=== PATIENT | male | born 1935 | race Caucasian/White ===

== ENCOUNTER 2017-01-13 20:50 | Inpatient (IN) | payer MEDICARE, OTHER ==
--- NOTE | ~2017-01-13 | CR72 ---
[facility] A Service of [facility] RADIOLOGY TEXT RESULTS PATIENT: LEONEL MCKEON LOCATION: [place] [id number] : 33 UNIT #: [id number] AGE: [address]: Marline Daley MD SEX: M ORDER DR: [id number] [facility] [address] [facility]. [place], [place] [address] [id number] I MR#: [id number] Acc #: [id number] NAME: LEONEL MCKEON : 1935 SEX: M STUDY DATE/TIME: 01/16/2017 4:17 UNIT: [facility] ROOM: [facility] STUDY DESCRIPTION: CR Chest Single View Portable Attending Physician: Marline Daley M.D. Ordering Physician: Javy Tobar M.D. MEDICAL IMAGING REPORT This report is preliminary unless electronic signature is present EXAM Portable chest. INDICATIONS Follow up infiltrates and endotracheal tube. FINDINGS Today's portable view of the chest shows no change in extensive bilateral infiltrates or in the endotracheal tube and central venous catheter. Dictated by... Jai Fox M.D. THIS IS AN ELECTRONICALLY VERIFIED REPORT Jai Fox M.D. at 01/16/2017 1:15 PM Sánchez TD: 01/16/2017 07:09 JOB #: [id number] MEDICAL IMAGING REPORT Page 1 of 1 COPY
--- NOTE | ~2017-01-13 | CR72 ---
[facility] A Service of [facility] & [facility] RADIOLOGY TEXT RESULTS PATIENT: LEONEL MCKEON LOCATION: [address] : 33 UNIT #: [id number] AGE: [address]: Marline Daley MD SEX: M ORDER DR: [id number] [facility] [address] [facility]. [place], [place] [address] [id number] I MR#: [id number] Acc #: [id number] NAME: LEONEL MCKEON : 1935 SEX: M STUDY DATE/TIME: 01/17/2017 5:00 UNIT: [facility] ROOM: [facility] STUDY DESCRIPTION: CR Chest Single View Portable Attending Physician: Marline Daley M.D. Ordering Physician: Javy Tobar M.D. MEDICAL IMAGING REPORT This report is preliminary unless electronic signature is present EXAM AP portable chest 01/17/2017 HISTORY Respiratory failure. Pneumonia. Follow up pulmonary status. TECHNIQUE AP portable chest x-ray. FINDINGS The exam shows no change since yesterday. Dense airspace infiltrate in the lung bases, greater on the left with left lung base atelectasis and probable small left pleural effusion. Mild diffuse interstitial opacity throughout the remaining portions of both lungs. Endotracheal tube in good position. NG tube below the diaphragm. The left arm PICC tip has migrated slightly since yesterday and is now directed toward the right brachiocephalic vein. IMPRESSION No significant change since yesterday. Dictated by... Kam Balderrama M.D. THIS IS AN ELECTRONICALLY VERIFIED REPORT Kam Balderrama M.D. at 01/17/2017 5:58 AM SAVANAHW/jen TD: 01/17/2017 05:16 JOB #: [id number] MEDICAL IMAGING REPORT Page 1 of 1 COPY
--- NOTE | ~2017-01-13 | CO ---
Unit #: [id number] #: [id number] Patient: LEONEL CROWDER [id number] [address] [address] [id number] I MR#: [id number] NAME: LEONEL CROWDER ROOM: [facility] Age: 81 Sex: M Admission Date: 01/13/2017 : 1935 Attending Physician: Marline Daley M.D. Consultation Date: 01/14/2017 CONSULTATION REPORT REASON FOR CONSULTATION Sepsis, respiratory failure, pneumonia. HISTORY OF PRESENT ILLNESS The patient is an 81-year-old gentleman who is a gramajo of the [facility]. Apparently he has advanced dementia. Baseline functional status and mental status unknown. He cannot add to the history and according to the EHR he was transferred from [facility] with altered mental status, found to be hypoxemic and hypotensive. He required intubation after a failed BiPAP trial. He has marked pulmonary infiltrates consistent with pneumonia, and was placed on antibiotics. He was found to have elevated troponin and BNP. Cardiology is following. Echocardiogram has been performed, but is pending. PAST MEDICAL HISTORY 1. Dementia. 2. There is mention of chronic obstructive pulmonary disease. 3. There is mention of past pneumonias and bronchitis. SOCIAL HISTORY According to the EHR, he is a gramajo of the [facility] and lives in a retirement. Otherwise unobtainable. FAMILY HISTORY Unobtainable. ALLERGIES No known drug allergies. HOME MEDICATIONS According to the EHR. 1. Duo-Nebs. 2. Melatonin. 3. Toprol. 4. Zyprexa. REVIEW OF SYSTEMS Unobtainable. PHYSICAL EXAMINATION GENERAL: Gentleman who is somewhat fidgety on the ventilator, but in no acute distress. VITALS: Afebrile. Pulse 104, respiratory rate 24, blood pressure 113/78, supported by pressors. He is 5'6", 127 pounds. Unit #: [id number] #: [id number] Patient: LEONEL CROWDER HEENT: Pupils equal, round and reactive to light. Somewhat small. Sclerae are anicteric. Head atraumatic. NECK: Supple. No supraclavicular or cervical adenopathy appreciated. 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 CHEST: Equal breath sounds. No wheeze. Scattered rhonchi. A few crackles. HEART: Regular rate and rhythm. No pathologic murmur, rub or gallop. ABDOMEN: Soft and nontender. No hepatomegaly or rebound. EXTREMITIES: No clubbing, cyanosis or edema. NEUROLOGIC: Sedated. DIAGNOSTIC STUDIES IMAGING: Chest x-ray bilateral pulmonary infiltrates. It looks like he has an increasing pleural effusion on the left. ET tube is adequate. LABORATORY: Arterial blood gas was 7.17, pCO2 62, pO2 114 at 4 o'clock this morning. He had a pH of 7.21, pCO2 45, pO2 169 on assist control of 24, 550, 10 PEEP and 100%. BUN is 44, creatinine 2.2, calcium 6.9, but albumin is 2.0. Troponin is 3.37, BNP 1,293, lactic acid was 5.7 and now 4.7, INR normal. White blood cell count 13.7, it was 10.9. Hemoglobin 11, platelet count 210. Urinalysis abnormal. Blood cultures, apparently 1 of 2 blood cultures Gram positive cocci in pairs. Sputum is pending receipt despite asking for it twice. Urine is pending. CARDIOVASCULAR: EKG rhythm strips sinus tachycardia. No definite ST-T wave changes. No ST elevation. ASSESSMENT 1. Respiratory failure. 2. Sepsis. 3. Pneumonia. 4. Pleural effusion. Rule out empyema. 5. Shock. 6. Non-ST elevation myocardial infarction with elevated BNP. Possible component of heart failure. 7. [place] with dementia, unknown baseline mental status. 8. Acute kidney injury. 9. Hyperglycemia. 10. Possible urinary tract infection. PLAN Antibiotics, mechanical ventilatory support, prednisone for pneumonia, CAT scan of the chest, sliding scale insulin, pressor and volume support. Thank you very much for allowing me to participate in the care of Mr. Crowder. Dictated by... Javy Tobar M.D. MISTY/edel TD: 01/14/2017 12:18 JOB #: [id number] CC: Javy Tobar M.D. Unit #: [id number] #: [id number] Patient: LEONEL CROWDER CONSULTATION REPORT Page 1 of 1 X Javy Tobar MD CONSULTATION REPORT
--- NOTE | ~2017-01-13 | A ---
[facility] Nutrition Therapy DATE: 01/14/17 Patient: LEONEL MCKEON Physician: FINN Address: [address] [place] [address] Room/Bed: [address], Zip: [place] [address] Admit Date: 01/13/17 Date of : 33 Height: 5 6 Weight: 127 58 NUTRITIONAL ASSESSMENT: REASON: NPO status in ICU 81 yo male admitted for PNA, AMS PMH: Left side contractures, COPD, dementia, PNA, bronchitis, insomnia Anthropometrics: Ht: 66" Wt: 58 kg BMI: 20.6 IBW: 64.5 kg, 90% IBW Labs: Gluc 269 BUN 44 Creat 2.2 Ca++ 6.9 Alb 2.0 AST 71 Accuchecks 112-222 GFR 26.7 BNP 1293 Meds: Vasopressin, levophed, solu-medrol, novolog, D5%, versed, pepcid I/O & Bowel function: 3400/335, last BM 01/13, NG to LWS (d/t vomiting) Skin Integrity: Open sore right neck Bruises BUE Edema: None noted Estimated Nutrition Needs: 4839-9378 kcals (28-32 kcals/kg) 70-87 grams protein (1.2-1.5 grams/kg) Assessment: Chart reviewed, events noted. 81 yo male [place] resident admitted for PNA (possible aspiration), septic shock. Pt found to have LELA. Pt is on pressor support per RN report. DAIRY DEPARTMENT MANAGER requests enteral nutrition recommendations. Pt's NGT is to LWS d/t vomiting upon admission. Per RN report, the pt is a barton of the [facility]. No family is available to provide nutritional history at this time. Please see recommendations below. Dx: Inadequate protein-energy intake RT clinical condition, ventilator dependence AEB NPO status. Intervention: 1. Enteral nutrition- see recommendations below Monitoring, Evaluation and Goals: 1. Enteral nutrition; provide >80% goal volume as medically feasible 2. Weight; preserve lean bpdy mass, promote gradual weight gain towards healthy BMI range 3. Skin; promote healing [facility] Nutrition Therapy DATE: 01/14/17 Patient: LEONEL MCKEON Physician: FINN Address: [address] [place] [address] Room/Bed: [facility], Zip: [place] [address] Admit Date: 01/13/17 Date of : 33 Height: 5 6 Weight: 127 58 4. GI; promote bowel regularity Recommendations: 1. Once medically feasible, recommend initiating enteral nutrition based on the following recommendations: -If the pt's MAP is <60 mmHg, do not feed. -If the pt's MAP is >60 mmHg, use fiber-free formula Osmolite 1.5. Start Osmolite 1.5 @ 20 mL/hr, increase by 10 mL q 8 hrs as tolerated to goal of 50 mL/hr. This will provide: 1800 kcals/ 75 grams protein/ 912 mL free H20 -Once the pt is hemodynamically stable, recommend using Jevity 1.5. Start Jevity 1.5 @ 20 mL/hr, increase by 10 mL q 8 hrs as tolerated to goal of 50 mL/hr. This will provide: 1800 kcals/ 77 grams protein/ 912 mL free H20 2. If the pt is extubated, recommend DIRECTOR STARS evaluation. Pt is at moderate-severe nutritional risk. RD will follow hospital course per protocol. Respectfully, SARA BERUMEN RD, LD [employer] [facility] cc: client file
--- NOTE | ~2017-01-13 | DS ---
Unit #: [id number] #: [id number] Patient: LEONEL MCKEON [id number] [address] [place], [place] [address] [id number] I MR#: [id number] NAME: LEONEL MCKEON ROOM: [facility] Age: 81 Sex: M Admission Date: 01/13/2017 : 1935 Discharge Date: 01/20/2017 Attending Physician: Marline Daley M.D. DISCHARGE SUMMARY SUMMARY DATE OF ADMISSION 01/13/2017 DATE OF 01/20/2017 REASON FOR ADMISSION Sepsis present on admission/NSTEMI/pneumonia/acute hypoxic respiratory failure. HISTORY OF PRESENT ILLNESS/HOSPITAL COURSE The patient is an 81-year-old male who is currently a barton of the [facility] with no family members who presented with him during initial part of hospital stay. He was transferred from [facility] emergency department secondary to sepsis and pneumonia. He is a long-term resident of [facility]. He does have from what was elicited, history of end-stage dementia. He apparently was brought to the emergency department at the outside facility with altered mental status, hypoxia, as well as hypotension. He failed BiPAP and he was ultimately intubated and subsequently transferred here. Upon arrival here, he was already on a dopamine drip which was continued and it was noted that he was and did meet sepsis criteria. He was placed in the ICU, consultation was placed to Dr. Tobar and associates for his business project manager. They continued to follow patient with appropriate IV antibiotics, respiratory/ventilator support, as well as routine ICU care. In regard to hypotension, consultation was placed to Dr. Miller who also evaluated for NSTEMI. The patient did undergo 2D echocardiogram showing an ejection fraction of 50% but severe mitral regurgitation present. Clinically, he had findings consistent with septic shock and/or ARDS. On the morning of 01/20/2017, patient's rhythm abruptly changed. Ann Resendez was called. Patient was noted to be in acute PEA receiving CPR. He was given epinephrine, bicarb, he regained his pulse a few minutes later; Unit #: [id number] #: [id number] Patient: LEONEL MCKEON however, after discussion with Dr. Miller, Dr. Tobar, Dr. Wills, as well as ICU team myself included, decision was made to make the patient DNR as his overall prognosis is dismal. Later on, at 0751 this morning, patient ultimately with his heart rhythm changing into asystole. FINAL DISCHARGE DIAGNOSES 1. Acute hypoxic/hypercapnic respiratory failure. 2. Sepsis on admission. 3. Multifocal pneumonia. 4. ARDS. 5. End-stage dementia. 6. Svy-SS-kvdvyuxai myocardial infarction. 7. End-stage chronic obstructive pulmonary disease. 8. Failure to thrive. 9. Acute kidney injury. 10. Hypernatremia. Dictated by... Marcela Ambrocio/haresh TD: 01/20/2017 21:13 JOB #: [id number] DISCHARGE SUMMARY Page 1 of 1 X Marline Daley MD X DISCHARGE SUMMARY
--- NOTE | ~2017-01-13 | HP ---
Unit #: [id number] #: [id number] Patient: LEONEL MCKEON [id number] [address] [place], [place] [address] [id number] I MR#: [id number] NAME: LEONEL MCKEON ROOM: [facility] Age: 81 Sex: M Admission Date: 01/13/2017 : 1935 Attending Physician: Armando Abdalla M.D. HISTORY AND PHYSICAL CHIEF COMPLAINT Septic shock secondary to pneumonia, non-ST elevation DE. HISTORY This 81-year-old male with dementia, from [facility], was transferred from [facility] emergency department for sepsis and pneumonia. The patient himself is nonverbal and currently intubated. No family is present. I am told that he was brought to [facility] emergency department earlier today with altered mental status, hypoxic and hypotensive. He failed BiPAP and was ultimately intubated. Chest x-ray shows extensive bilateral pneumonia. Patient was hypotensive, given IV fluids, and started on a dopamine drip. Labs are notable for an elevated troponin. While en route the patient did become hypoglycemic although does not have a history of diabetes. He was given D50. On examination the patient is somnolent despite no sedation. He has flexion contractures on exam. 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 Purulent sputum from the ET tube. PAST MEDICAL HISTORY 1. COPD. 2. Dementia. Patient is a barton of the [facility] at [facility]. 3. History of pneumonia and bronchitis. 4. Insomnia. ALLERGIES No known drug allergies. HALF-WAY [employer]ICINES 1. DuoNebs. 2. Melatonin 3 mg q.h.s. 3. Toprol-XL 25 mg daily. 4. Zyprexa 2.5 mg daily. 5. Robitussin DM. 6. Tylenol. FAMILY HISTORY Unobtainable. SOCIAL HISTORY The patient is a barton of the [facility], lives at [facility]. Currently does not smoke or drink alcohol but I am not sure about his Unit #: [id number] #: [id number] Patient: LEONEL MCKEON previous use. REVIEW OF SYSTEMS Impossible to obtain as patient is nonverbal, intubated and somnolent. PHYSICAL EXAMINATION GENERAL: Somnolent 81-year-old male currently in no acute distress. VITAL SIGNS: Blood pressure 98/47 on 18 mcg of dopamine. O2 saturation is 97% on an FIO2 of 100%. Heart rate 128. Respirations 18. HEENT: Eyes PERRLA. Pharynx: Patient is orally intubated. NECK: His neck is rotated toward the left and there is lesion over the right neck which looks to be most consistent with squamous cell carcinoma. NG tube is in the naris. CHEST: Chest does reveal rhonchi bilaterally. There is purulent sputum coming from the ET tube. CARDIAC: Normal S1 and S2, without definite murmur. ABDOMEN: Bowel sounds are not present but nontender, no hepatosplenomegaly or distention. No masses. EXTREMITIES: Without edema. Pedal pulses are markedly diminished. No ulcers on the feet. NEUROLOGIC EXAMINATION: The patient is somnolent, does arouse to noxious stimuli but not purposely. DIAGNOSTIC STUDIES LABORATORY: Labs performed earlier: Hematocrit is 39, normal white count and platelet count. Troponin 3.14. SMA-12: Creatinine is 2.13, BUN 37, albumin 2.8. Urinalysis: Two to five red cells, two to five white cells. Initial ABG pH 7.15, pCO2 74, pO2 79 on BiPAP 12/6. IMAGING: Chest x-ray dense bilateral airspace disease changes, right greater than left, predominantly in the mid to lower lung zones. Stable borderline to mild cardiomegaly. After intubation the ET tube is in good position. NG tube was high up and had to be advanced. CARDIOVASCULAR: EKG initially sinus tachycardia, rate 116, Qs noted V1 through V3. Mild ST depression noted V4 through V6. Repeat EKG prior transfer sinus tachycardia rate 113, Q in V1 and V2. There is very mild ST depression V5 through V6. Q noted in V3. ASSESSMENT 1. Likely aspiration pneumonia with septic shock and acute hypoxic hypercapnic respiratory failure. 2. Non-ST elevation myocardial infarction. 3. Acute kidney injury. 4. Hypoglycemia likely secondary to sepsis. 5. 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 6. Dementia, patient is a barton of the [facility], has flexion contractures. 7. History of chronic obstructive pulmonary disease. PLANS 1. Recheck all labs, and panculture. 2. Vancomycin and Zosyn will be administered and one dose of tobramycin. 3. Aspirin, heparin drip, repeat cardiac enzymes, obtain echocardiogram, Cardiology to see. 4. IV fluids and pressors. 5. Founder to see. 6. Add dextrose to IV fluids and obtain frequent Accu-Cheks. Unit #: [id number] #: [id number] Patient: LEONEL MCKEON 7. H2 dave prophylaxis. 8. Prognosis is guarded to poor. Dictated by Almita Minaya M.D. AML/cf TD: 01/13/2017 21:18 JOB #: [id number] HISTORY AND PHYSICAL Page 1 of 1 X Almita Minaya MD X HISTORY AND PHYSICAL
--- NOTE | ~2017-01-13 | CO ---
Unit #: [id number] #: [id number] Patient: LEONEL MCKEON [id number] [place] [address] [facility]. [place], [place] [address] [id number] MR#: [id number] NAME: LEONEL MCKEON ROOM: [facility] Age: 81 Sex: M Admission Date: 01/13/2017 : 1935 Attending Physician: Marline Daley M.D. Consultation Date: 01/14/2017 CONSULTATION REPORT REASON FOR CONSULT Elevated troponin. HISTORY OF PRESENT ILLNESS This is an 81-year-old white male new to our group with a past medical history of dementia, COPD and hypertension. The patient is a gramajo of the [facility] and resides at [facility]. He is reportedly a nonsmoker currently. Information has been obtained from prior documentation and nursing staff. There is no family at the bedside and the patient is on a ventilator. He presented to [facility] with altered mental status. Initial labs revealed troponin of 3.14. EKG revealed sinus tachycardia with no acute findings. Creatinine was 2.13 with a BUN of 37. ABG was abnormal with a pH of 7.16, CO2 of 80 and HCO3 of 27. pO2 was 104 on a nonrebreather. Chest x-ray revealed concern for large right-sided pneumonia. The patient was treated for sepsis and pneumonia. He was pancultured. He was ultimately placed on a BiPAP and subsequently intubated. Blood pressure was low and he was started on a Levophed drip. He was sent to [facility] and Pulmonology was consulted for addresser care. Cardiology was consulted for elevated troponin. It is unclear if the patient has had any chest pain. He does have risk factors for ischemic heart disease including hypertension. It is unclear if he is a reformed smoker or has family history of heart disease. PAST MEDICAL HISTORY 1. Dementia. 2. Gramajo of the [facility]. 3. Resides at [facility]. 4. COPD. 5. Hypertension. 6. Nonsmoker. PAST SURGICAL HISTORY Unable to obtain. SOCIAL HISTORY The patient resides at [facility]. He is a [employer]. He is currently a nonsmoker. It is unclear if he has a history of previous tobacco abuse, alcohol or illicit drug use. FAMILY HISTORY Difficult to obtain. Unit #: [id number] #: [id number] Patient: LEONEL MCKEON ALLERGIES No known drug allergies. HOME MEDICATIONS 1. DuoNeb. 2. Melatonin. 3. Toprol XL. 4. Zyprexa. 5. Robitussin. 6. Tylenol. REVIEW OF SYSTEMS Difficult to obtain. PHYSICAL EXAMINATION GENERAL APPEARANCE: This is an 81-year-old white male who is sedated on a ventilator but moves extremities. Skin is warm and dry. VITAL SIGNS: Temperature 99. Pulse 104. Blood pressure 113/78. NECK: Supple. Mild JVD. No hepatojugular reflux. Normal carotid upstrokes. No carotid bruits auscultated. HEART: S1, S2. Regular rate and rhythm. No murmurs, rubs or gallops. LUNGS: Bilateral breath sounds are diminished in the bases. Respirations even and unlabored. No rales, rhonchi or wheezes. ABDOMEN: Soft, nontender, nondistended. Positive bowel sounds auscultated x4 quadrants. No ascites. EXTREMITIES: The bilateral extremities have no pretibial or pitting edema. DP pulses 3+. Capillary refill less than three seconds. DIAGNOSTIC STUDIES LABORATORY: WBC count 13.7, hemoglobin 11, hematocrit 35.8, platelets 210. Sodium 135, potassium 4.7, chloride 109, CO2 18, BUN 44, creatinine 2.2, glucose 269, AST 71, ALT 20. Troponin 3.14, 3.09 and 3.37. BNP 1,293. INR 1.3. UA with trace leukocytes and 3+ blood. Blood cultures, urine culture and sputum culture pending. IMAGING: Chest x-ray reveals pneumonia in the right lower lobe. Interstitial infiltrates noted. Mild cardiomegaly. CARDIOVASCULAR: EKG reveals sinus rhythm with low voltage QRS. No acute ST or T wave changes. QTC 431 msec. IMPRESSION 1. Right lower lobe pneumonia. 2. Septic shock. 3. Hypotension, on pressors. 4. Chronic kidney disease with acute kidney injury. 5. Mildly elevated LFTs. 6. Possible diabetes mellitus with uncontrolled glucose levels. 7. Dementia. 8. Elevated troponin. Ruled in for non-ST elevation myocardial infarction, possibly type 2 from supply and demand. PLAN 1. The patient presented to the hospital with altered mental status and was found to have pneumonia and concern for sepsis. He was intubated and transferred to the intensive care unit. 2. Cardiology was consulted for elevated troponin. The patient's Unit #: [id number] #: [id number] Patient: LEONEL MCKEON troponin is 3.37. He is on rectal aspirin and continuous heparin drip. 3. TSH and fasting lipid profile will be obtained. 4. Serial cardiac enzymes and EKG will be ordered. 5. He is currently hypotensive on Levophed and vasopressin. We will continue vasoactive drips with parameters to keep mean arterial pressure greater than 60. 6. A 2-D echocardiogram will be obtained to assess LV function and valves. 7. The patient's fluids will be increased to 150 mL/hour for six hours due to sepsis. We will monitor volume status closely. 8. The patient will be conservatively managed for acute NH. There are no plans for cardiac catheterization. 1. Dictated by... Radha Rodríguez APRN for Marcela Huang/donald TD: 01/15/2017 08:28 JOB #: [id number] CONSULTATION REPORT Page 1 of 1 X X CONSULTATION REPORT
--- NOTE | ~2017-01-13 | CR72 ---
[facility] A Service of [facility] RADIOLOGY TEXT RESULTS PATIENT: LEONEL MCKEON LOCATION: [address] : [birth year] UNIT #: [id number] AGE: [address]: Marline Daley MD SEX: M ORDER DR: [id number] [facility] [address] [facility]. [place], [place] [address] [id number] I MR#: [id number] Acc #: [id number] NAME: LEONEL MCKEON : 1935 SEX: M STUDY DATE/TIME: 01/13/2017 20:37 UNIT: [facility] ROOM: [facility] STUDY DESCRIPTION: CR Chest Single View Portable Attending Physician: Armando Abdalla M.D. Referring Physician: Sebastian Moser M.D. Ordering Physician: Chino Vincent M.D. MEDICAL IMAGING REPORT This report is preliminary unless electronic signature is present EXAM Frontal chest. DATE OF EXAM 01/13/2017 INDICATIONS 81-year-old female for ET tube placement. REPORT Frontal chest was performed and compared with 1642 hours. FINDINGS ET tube tip in good position above the froy by a distance of approximately 7 cm. Enteric tube tip below the diaphragm but the tip is not in the field of view. The patient is rotated to the left. Cardiac silhouette is stable. Extensive interstitial and alveolar infiltrates are present in the lower lung zone on the right. There is a left-sided effusion and left basilar and midlung zone consolidation on the left persists. Patchy interstitial opacities and faint alveolar opacities in the upper lung zone on the left are also unchanged. There are background changes of emphysema. No pneumothorax. IMPRESSION 1. ET tube tip in good position about 7 cm above the froy. No pneumothorax. 2. No significant change in interstitial and alveolar infiltrates bilaterally. Left-sided effusion. Dictated by... Yadiel Schmid M.D. [facility] A Service of [facility] RADIOLOGY TEXT RESULTS PATIENT: LEONEL MCKEON LOCATION: [facility] : 33 UNIT #: [id number] AGE: [address]: Marline Daley MD SEX: M ORDER DR: THIS IS AN ELECTRONICALLY VERIFIED REPORT Yadiel Schmid M.D. at 01/14/2017 5:12 PM Fahad TD: 01/14/2017 00:24 JOB #: [id number] MEDICAL IMAGING REPORT Page 1 of 1 COPY
--- NOTE | ~2017-01-13 | CR72 ---
[facility] A Service of [facility] RADIOLOGY TEXT RESULTS PATIENT: LEONEL MCKEON LOCATION: [place] [id number] : 33 UNIT #: [id number] AGE: [address]: Marline Daley MD SEX: M ORDER DR: [id number] [facility] [address] [facility]. [place], [place] [address] [id number] I MR#: [id number] Acc #: [id number] NAME: LEONEL MCKEON : 1935 SEX: M STUDY DATE/TIME: 01/19/2017 3:06 UNIT: [facility] ROOM: [facility] STUDY DESCRIPTION: CR Chest Single View Portable Attending Physician: Marline Daley M.D. Ordering Physician: Cal Blanchard M.D. MEDICAL IMAGING REPORT This report is preliminary unless electronic signature is present EXAM Chest x-ray, 01/19/2017 HISTORY Respiratory failure. Followup cardiopulmonary status. TECHNIQUE AP portable chest x-ray. FINDINGS Exam shows no significant change since yesterday. Endotracheal tube, left arm PICC and NG tube remain in good position. Dense infiltrate and volume loss in the left lower lobe and small left pleural effusion. Mild diffuse interstitial opacity throughout the remaining portions of both lungs. IMPRESSION Stable portable chest radiograph, unchanged since yesterday. Support equipment in good position. Dictated by... Kam Balderrama M.D. THIS IS AN ELECTRONICALLY VERIFIED REPORT Kam Balderrama M.D. at 01/19/2017 5:58 AM YANI/hugo TD: 01/19/2017 04:48 JOB #: [id number] MEDICAL IMAGING REPORT Page 1 of 1 COPY
--- NOTE | ~2017-01-13 | CR72 ---
[facility] A Service of [facility] RADIOLOGY TEXT RESULTS PATIENT: LEONEL MCKEON LOCATION: [address] : 33 UNIT #: [id number] AGE: [address]: IVETH ABDALLA MD SEX: M ORDER DR: [id number] [facility] [address] [facility]. [place], [place] [address] [id number] I MR#: [id number] Acc #: [id number] NAME: LEONEL MCKEON : 1935 SEX: M STUDY DATE/TIME: 01/14/2017 0:04 UNIT: [facility] ROOM: [facility] STUDY DESCRIPTION: CR Chest Single View Portable Attending Physician: Iveth Abdalla M.D. Ordering Physician: Almita Minaya M.D. MEDICAL IMAGING REPORT This report is preliminary unless electronic signature is present EXAM Portable chest. INDICATION PIC catheter placement. FINDINGS This portable view of the chest is compared with one from earlier today. A left-sided PIC catheter has been placed. The catheter is slightly buckled and the tip of the catheter is superimposed upon the ascending aorta. The catheter descends to the left of the midline and is not following the typical course for a left subclavian vein. Dense bilateral infiltrates are stable. IMPRESSION The position of the left PIC catheter is not typical. It is entering from the left arm but it is descending on the left side of the chest and the tip overlies the aortic arch. This could be in a venous tributary or possibly it could be arterial in nature which is unlikely given it peripheral entry point. Correlation with venous blood return is recommended. The catheter does not appear to be in the superior cava. Dictated by... Jai Fox M.D. THIS IS AN ELECTRONICALLY VERIFIED REPORT Jai Fox M.D. at 01/14/2017 5:30 AM JESSICA/hugo TD: 01/14/2017 03:38 JOB #: [id number] [facility] A Service of [facility] RADIOLOGY TEXT RESULTS PATIENT: LEONEL MCKEON LOCATION: [facility] CICCU3-23 : 33 UNIT #: [id number] AGE: [address]: IVETH ABDALLA MD SEX: M ORDER DR: MEDICAL IMAGING REPORT Page 1 of 1 COPY
--- NOTE | ~2017-01-13 | CR72 ---
[facility] A Service of [facility] RADIOLOGY TEXT RESULTS PATIENT: LEONEL MCKEON LOCATION: [place] [address] : 33 UNIT #: [id number] AGE: [address]: Marline Daley MD SEX: M ORDER DR: [id number] [facility] [address] [place], [place] [address] [id number] I MR#: [id number] Acc #: [id number] NAME: LEONEL MCKEON : 1935 SEX: M STUDY DATE/TIME: 01/14/2017 4:46 UNIT: [facility] ROOM: [facility] STUDY DESCRIPTION: CR Chest Single View Portable Attending Physician: Armando Abdalla M.D. Ordering Physician: Almita Minaya M.D. MEDICAL IMAGING REPORT This report is preliminary unless electronic signature is present EXAM Portable chest HISTORY Followup pneumonia. FINDINGS Today's portable view of the chest is compared with yesterday's study. Dense right lower lobe infiltrate and left lower lobe atelectasis and consolidation are stable. The endotracheal tube and central venous catheter are I good position. Dictated by... Jai Fox M.D. THIS IS AN ELECTRONICALLY VERIFIED REPORT Jai Fox M.D. at 01/14/2017 2:21 PM JESSICA/brianna TD: 01/14/2017 06:59 JOB #: [id number] MEDICAL IMAGING REPORT Page 1 of 1 COPY
--- NOTE | ~2017-01-13 | CO ---
Unit #: [id number] #: [id number] Patient: LEONEL CROWDER [id number] [place] [address] [facility]. [place], [place] [address] [id number] Gala MR#: [id number] NAME: LEONEL CROWDER [facility] Age: 81 Sex: M Admission Date: 01/13/2017 : 1935 Attending Physician: Marline Daley M.D. Consultation Date: 01/14/2017 CONSULTATION REPORT REASON FOR CONSULTATION Renal failure. HISTORY OF PRESENT ILLNESS Thank you very much for having me see this patient in consultation. Mr. Leonel Crowder is an 81-year-old gentleman who apparently resides in [facility], who is a gramajo of the community health with underlying dementia, who presented to [facility] with mental status changes, subsequently respiratory failure, was intubated, diagnosed with pneumonia, also had increased troponin, apparently felt to have a non-ST UT. I was asked to see the patient secondary to worsening BUN and creatinine. Patient's BUN and creatinine this morning were 44 and 2.2 respectively. Creatinine prior to that last night was 1.9. I do not have any previous creatinines on him at this time. He currently has decreased response. He is moving but really will not answer any questions. He occasionally opens his eyes but, again, no real response. He is intubated. PAST MEDICAL HISTORY His past medical history according to the records show a history of dementia, history of COPD, history of hypertension. MEDICINES His medicines include vancomycin, meropenem, Solu-Medrol, Levophed, vasopressin, Pepcid and aspirin. SOCIAL HISTORY Socially he lives at, again, [facility], apparently no alcohol or smoking and he is a gramajo of the community health. ALLERGIES No known drug allergies according to the chart. REVIEW OF SYSTEMS Unable to obtain except for what is in the HPI. FAMILY HISTORY Family history is unable to obtain. PHYSICAL EXAMINATION VITAL SIGNS: Temperature is 99.3. Pulse 97 to 123. His blood pressure was 70 to 113 over 41 to 78; currently it is around 110 systolic. He had 3.4 L in, out 335+. HEENT: His pupils are equal and reactive to light. Unable to assess his Unit #: [id number] #: [id number] Patient: LEONEL CROWDER. He is orally intubated. He has an NG tube in place as well. NECK: His neck is supple, no adenopathy. CARDIAC: He is without a rub. No S3 or S4. LUNGS: His lungs have a few bilateral rhonchi throughout. ABDOMEN: Bowel sounds positive, nontender, soft. No masses felt. No hepatomegaly or organomegaly noted. EXTREMITIES: He has no lower extremity swelling. His pulses are intact in upper and lower extremities. JOINTS: No joint pain or joint swelling. SKIN: No acute rashes. NEUROLOGIC: Again decreased response. He is moving all extremities. GENITOURINARY: Salas catheter is in place. DIAGNOSTIC STUDIES LABORATORY DATA: Shows last ABG pH 7.219, pCO2 of 45, pO2 of 169. His sodium is 135, potassium 4.7, chloride is 109. His bicarb was 18, BUN of 44, creatinine of 2.2, glucose was 269. His calcium is 6.9, albumin is 2.0, CPK is 2509, troponin is 3.37, BMP is 1293, lactic acid is 4.7 down from 5.7. His hemoglobin is 12.2, white count 10,900 and platelets 207,000 and 36 bands. UA shows specific gravity of 1.013, 2+ protein, 250 glucose, 50 to 100 RBCs, 10 to 25 WBCs. Urine culture and blood cultures are pending. IMAGING: His chest x-ray shows bilateral pneumonia. ASSESSMENT AND PLAN 1. Acute kidney injury: This gentleman with increasing BUN and creatinine, decreased urine output, most likely ATN related to aspiration pneumonia/sepsis. Agree with pressors, blood pressure control, IV fluids for now. Will change him over to 1/2 normal saline with 1.5 amps of bicarb per liter. His sugars are elevated so I will discontinue the glucose in the fluids for now. He does have a mild increased CPK of 2500 but I doubt if this is a cause of his renal failure. Will order a portable renal ultrasound. Will check a urine sodium and urine eosinophils, check full set of electrolytes in the morning including a CMP, magnesium, phosphorus and a CPK in the a.m. 2. Hypocalcemia: Patient with decreased calcium, corrected at 8.5 but still low. Will give him two amps of calcium over a four hour period, check in a.m. 3. Aspiration pneumonia, respiratory failure and history of chronic obstructive pulmonary disease. 4. Non-ST elevation myocardial infarction. 5. Underlying dementia. 6. [place] of the state. 7. Acid-base status: Patient appears to have a combination of both metabolic and respiratory acidosis. Again, will put bicarb in IV fluids and will follow. Dictated by... Aaliyah Champion M.D. WAD/cf Unit #: [id number] #: [id number] Patient: LEONEL CROWDER TD: 01/14/2017 16:11 JOB #: [id number] CONSULTATION REPORT Page 1 of 1 X Akbar Champion MD X CONSULTATION REPORT
--- NOTE | ~2017-01-13 | CT57 ---
[facility] A Service of [facility] RADIOLOGY TEXT RESULTS PATIENT: LEONEL MCKEON LOCATION: [address] : 33 UNIT #: [id number] AGE: [address]: Marline Daley MD SEX: M ORDER DR: [id number] [facility] [address] [facility]. [place], [place] [address] [id number] I MR#: [id number] Acc #: [id number] NAME: LEONEL MCKEON : 1935 SEX: M STUDY DATE/TIME: 01/14/2017 15:36 UNIT: [facility] ROOM: [facility] STUDY DESCRIPTION: CT Chest Wo Cont Attending Physician: Marline Daley M.D. Ordering Physician: Javy Tobar M.D. MEDICAL IMAGING REPORT This report is preliminary unless electronic signature is present EXAM Chest CT. DATE OF EXAM 01/14/2017 INDICATIONS Ventilator patient. Pneumonia. Respiratory distress. History of myocardial infarction. TECHNIQUE Axial images were obtained through the chest without contrast. Multiplanar reformats were obtained. NOTE: This CT exam was performed with one or more of the following radiation dose reduction techniques: automatic exposure control, adjustment of mA and/or kV according to patient size, and iterative reconstruction. COMPARISON Comparison made with 08/02/2014. FINDINGS The exam is limited as the patient is oblique on the CT table rather than supine. There is a well-positioned endotracheal tube. The tip of a left arm-approach PICC is deflected cephalad into the right internal jugular vein. There is a trace amount of pleural fluid on both sides of the chest. No pericardial effusion is seen. There is emphysema. The left lower lobe is completely consolidated. High-density material within the consolidation could reflect aspirated barium. There are irregular somewhat dense infiltrates in the right lower lobe and right middle lobes compatible with pneumonia. There is also some mild infiltrate in the left upper lobe and right upper lobe as well. No pneumothorax is seen. Upper abdomen demonstrates a nonobstructing stone in the right kidney measuring up to 9 mm in greatest dimension. There is a trace amount of free fluid. STS. [facility] A Service of [facility] RADIOLOGY TEXT RESULTS PATIENT: LEONEL MCKEON LOCATION: [address] : [birth year] UNIT #: [id number] AGE: [address]: Marline Daley MD SEX: M ORDER DR: There is an old mid thoracic compression deformity. IMPRESSION 1. Densely consolidating pneumonia. The left lower lobe is completely consolidated. There is fairly pronounced alveolar consolidation right middle and right lower lobes as well. Lesser consolidation is noted in the upper lobes. No pneumothorax. There is underlying pneumonia. 2. Trace bilateral effusions. 3. High density material in the consolidated left lower lobe could reflect aspirated barium. 4. Left IJ PICC line has flipped cephalad into the right internal jugular vein. 5. Atherosclerotic disease and coronary artery disease. Dictated by... Grey Zuñiga Jr., M.D. THIS IS AN ELECTRONICALLY VERIFIED REPORT Grey Zuñiga Jr., M.D. at 01/15/2017 5:55 AM MÓNICA/pretty TD: 01/14/2017 17:10 JOB #: [id number] MEDICAL IMAGING REPORT Page 1 of 1 COPY
--- NOTE | ~2017-01-13 | EKG ---
PATIENT: LEONEL MCKEON UNIT #: [id number] Ventricular Rate: 89 BPM Atrial Rate: 89 BPM P-R Interval: 190 ms QRS Duration: 84 ms Q-T Interval: 356 ms QTC Calculation(Bezet): 433 ms P [place]: 82 degrees Calculated R [place]: 48 degrees Calculated T [place]: 5 degrees Diagnosis Line: Normal sinus rhythm Diagnosis Line: Low voltage QRS Diagnosis Line: Poor R wave progression questionable lead position Diagnosis Line: or body habitus Diagnosis Line: Abnormal ECG Diagnosis Line: When compared with ECG of 14-JAN-2017 00:34, Diagnosis Line: Nonspecific T wave abnormality now evident in Diagnosis Line: Inferior leads Diagnosis Line: Confirmed by NAVIN STRICKLAND MD ([id number]) on Diagnosis Line: 01/15/2017 7:27:09 AM INTERPRETING : ARMOND
--- NOTE | ~2017-01-13 | FU ---
[facility] Nutrition Therapy DATE: 01/16/17 Patient: LEONEL MCKEON Physician: FINN Address: [address] [place] [address] Room/Bed: [address], Zip: [place] [phone] Admit Date: 01/13/17 Date of : [birth year] Height: 5 6 Weight: 143 65 NUTRITION MONITORING/FOLLOW-UP: Reason: Enteral nutrition follow-up Admitting Dx: 81 y/o male admitted from halfway with AMS, septic shock, ?aspiration PNA, LELA Anthropometrics: Ht: 66", admission wt: 58 kg, current wt: 65 kg, CMI: 20.6 (based on admission wt; normal) Labs: K+ 3.4, Glucose 183, POC 156, BUN 66, Creat 2.3, GFR 25.3 Meds: Levophed, Pitressin, D5, Fentanyl/Versed prn, Bumex, Pepcid, Novolog (low SSI) I&O's: 4195/1205, last BM 01/16 (small) Skin: Stage II pressure ulcer mid back Edema: Scrotum 3+, trace PURA ankles, R hand 1+ Estimated Nutrition Needs: 0141-8410 kcals per day (28-32 kcals/kg admission wt) 70-87 g protein per day (1.2-1.5 g/kg admission wt) Fluids consistent with kcal needs or per MD Assessment: Chart reviewed, events noted. Patient remains intubated, no plan to wean today, sedated with prn Fentanyl/Versed. EN was started yesterday per NGT with Osmolite @ 10 ml/hr, now advanced to 20 ml/hr. Advancing slowly per MD- goal rate noted in [employer] shift assessment to be 45 ml/hr, however RD recommended 50 ml/hr. Patient remains on 2 pressors. See goals, nutrition dx and recs below. Will continue to follow. Dx: Inadequate protein energy intake r/t clinical condition, vent dependency AEB NPO - RESOLVED New nutrition dx: Inadequate enteral nutrition infusion r/t EN not at goal rate AEB Osmolite 1.5 @ 20 ml/hr (goal 50 ml/hr). Intervention: Increase EN as tolerated to goal, replace K+ Monitoring, Evaluation and Goals: 1. EN to provide > 80% goal volume x 24 hours - NOT MET, IN PROGRESS 2. Promote gradual weight gain - IN PROGRESS; 7kg gain since admission (fluid vs actual [facility] Nutrition Therapy DATE: 01/16/17 Patient: LEONEL MCKEON Physician: FINN Address: [address] [place] [address] Room/Bed: [address], Zip: [place] [address] Admit Date: 01/13/17 Date of : [birth year] Height: 5 6 Weight: 143 65 gain) 3. Promote wound healing - IN PROGRESS; Stage II pressure ulcer mid back 4. Promote regular GI function - MET Current goals: as stated above, no change Monitor: Per protocol, criteria to determine if above goals met Recommendations: 1. Increase enteral nutrition rate with Osmolite 1.5 per NGT by 10 ml q 12 hours as tolerated per MD. Goal rate is 50 ml/hr, which will provide 1800 kcals, 75 g protein and 912 ml water. Free water flushes per MD once at goal rate, RD suggests 225 ml QID. Note; this formula provides no fiber, which is indicated for this patient until he is more hemodynamically stable to prevent bowel ischemia. 2. Once the patient is hemodynamically stable suggest changing EN formula to standard formula; Jevity 1.5 @ goal of 50 ml/hr to provide 1800 kcals, 77 g protein and 912 ml water. Free water flushes as mentioned above. 3. If extubated advance to oral diet per [employer]. 4. Replace lytes prn (K+ low). Status: Moderate-severe nutrition risk Respectfully, Alma Delia Martinez, CARLI, LD [facility] cc: client file
--- NOTE | ~2017-01-13 | EKG ---
PATIENT: LEONEL MCKEON UNIT #: [id number] Ventricular Rate: 98 BPM Atrial Rate: 98 BPM P-R Interval: 174 ms QRS Duration: 84 ms Q-T Interval: 348 ms QTC Calculation(Bezet): 444 ms Calculated R [place]: 49 degrees Calculated T [place]: 56 degrees Diagnosis Line: Sinus rhythm with Premature supraventricular Diagnosis Line: complexes and Premature ventricular complexes or Diagnosis Line: Fusion complexes Diagnosis Line: Poor R progression Diagnosis Line: ST abnormality, possible digitalis effect Diagnosis Line: Abnormal ECG Diagnosis Line: When compared with ECG of 17-JAN-2017 06:49, Diagnosis Line: Fusion complexes are now Present Diagnosis Line: Premature ventricular complexes are now Present Diagnosis Line: Premature supraventricular complexes are now Diagnosis Line: Present Diagnosis Line: SD interval has decreased Diagnosis Line: Nonspecific T wave abnormality no longer evident Diagnosis Line: in Lateral leads Diagnosis Line: Confirmed by NAVIN STRICKLAND MD ([id number]) on Diagnosis Line: 01/18/2017 12:48:49 PM INTERPRETING MD: ARMOND
--- NOTE | ~2017-01-13 | EKG ---
PATIENT: LEONEL MCKEON UNIT #: [id number] Ventricular Rate: 81 BPM Atrial Rate: 81 BPM P-R Interval: 246 ms QRS Duration: 90 ms Q-T Interval: 366 ms QTC Calculation(Bezet): 425 ms P [place]: 79 degrees Calculated R [place]: 80 degrees Calculated T [place]: 65 degrees Diagnosis Line: Sinus rhythm with 1st degree A-V block Diagnosis Line: Low voltage QRS Diagnosis Line: Borderline ECG Diagnosis Line: When compared with ECG of 15-JAN-2017 06:52, Diagnosis Line: MD interval has increased Diagnosis Line: Minimal criteria for Anterior infarct are no Diagnosis Line: longer Present Diagnosis Line: Nonspecific T wave abnormality no longer evident Diagnosis Line: in Inferior leads Diagnosis Line: Nonspecific T wave abnormality now evident in Diagnosis Line: Lateral leads Diagnosis Line: Confirmed by LOVELY ALEX MD ([id number]) on 01/17/2017 Diagnosis Line: 6:37:54 PM INTERPRETING MD: ISAI STONE
--- NOTE | ~2017-01-13 | HP ---
Unit #: [id number] #: [id number] Patient: LEONEL MCKEON [id number] [address] [address] [id number] I MR#: [id number] NAME: LEONEL MCKEON ROOM: [facility] Age: 81 Sex: M Admission Date: 01/13/2017 : 1935 Attending Physician: Armando Abdalla M.D. HISTORY AND PHYSICAL ADDENDUM The patient received Rocephin and vancomycin prior to transfer. In reviewing his records he is allergic to penicillin, therefore I will order vancomycin and meropenem. I am waiting to speak with the furnace combination analyst currently in regard to his NSTEMI. Critical care time spent evaluating this patient was 40 minutes. Dictated by Marcela Briggs/collin TD: 01/13/2017 21:49 JOB #: [id number] HISTORY AND PHYSICAL Page 1 of 1 X Almita Minaya MD HISTORY AND PHYSICAL
--- NOTE | ~2017-01-13 | EKG ---
PATIENT: LEONEL MCKEON UNIT #: [id number] Ventricular Rate: 79 BPM Atrial Rate: 79 BPM P-R Interval: 164 ms QRS Duration: 82 ms Q-T Interval: 348 ms QTC Calculation(Bezet): 399 ms P [place]: 60 degrees Calculated R [place]: 89 degrees Calculated T [place]: 23 degrees Diagnosis Line: Normal sinus rhythm Diagnosis Line: Normal ECG Diagnosis Line: When compared with ECG of 18-JAN-2017 07:07, Diagnosis Line: Fusion complexes are no longer Present Diagnosis Line: Premature ventricular complexes are no longer Diagnosis Line: Present Diagnosis Line: Premature supraventricular complexes are no longer Diagnosis Line: Present Diagnosis Line: Confirmed by LOVELY ALEX MD ([id number]) on 01/19/2017 Diagnosis Line: 10:19:24 PM INTERPRETING MD: ISAI STONE
--- NOTE | ~2017-01-13 | CR72 ---
[facility] A Service of [facility] & [facility] RADIOLOGY TEXT RESULTS PATIENT: LEONEL MCKEON LOCATION: [address] : [birth year] UNIT #: [id number] AGE: [address]: Marline Daley MD SEX: M ORDER DR: [id number] [facility] [address]. [place], [place] [address] [id number] MR#: [id number] Acc #: [id number] NAME: LEONEL MCKEON : 1935 SEX: M STUDY DATE/TIME: 01/15/2017 5:03 UNIT: [facility] ROOM: [facility] STUDY DESCRIPTION: CR Chest Single View Portable Attending Physician: Marline Daley M.D. Ordering Physician: Javy Tobar M.D. MEDICAL IMAGING REPORT This report is preliminary unless electronic signature is present EXAM Portable chest INDICATION Follow up infiltrates and endotracheal tube. FINDINGS This portable view of the chest is compared with yesterday's study. There is no change in the extensive bilateral infiltrates and left lower lobe atelectasis. The endotracheal tube, nasogastric tube and PIC catheter are stable. Dictated by... Jai Fox M.D. THIS IS AN ELECTRONICALLY VERIFIED REPORT Jai Fox M.D. at 01/15/2017 2:15 PM JESSICA/eliceo TD: 01/15/2017 06:32 JOB #: [id number] MEDICAL IMAGING REPORT Page 1 of 1 COPY
--- NOTE | ~2017-01-13 | CR7 ---
[facility] A Service of [facility] RADIOLOGY TEXT RESULTS PATIENT: LEONEL MCKEON LOCATION: [address] : 33 UNIT #: [id number] AGE: [address]: Marline Daley MD SEX: M ORDER DR: [id number] [place] [id number] [facility]. [place], [place] [address] [id number] MR#: [id number] Acc #: [id number] NAME: LEONEL MCKEON : 1935 SEX: M STUDY DATE/TIME: 01/19/2017 10:07 UNIT: [facility] ROOM: [facility] STUDY DESCRIPTION: CR Abdomen Single AP View Attending Physician: Marline Daley M.D. Ordering Physician: Javy Tobar M.D. MEDICAL IMAGING REPORT This report is preliminary unless electronic signature is present EXAM Abdomen 1 view 01/19/2017 1007 hours HISTORY 81-year-old man with abdominal distension for 1 day, evaluate for possible ileus. COMPARISON Chest film 01/19/2017 0306 hours. FINDINGS 2 portable views of the abdomen demonstrate a nasogastric tube with tip directed inferiorly in the mid stomach. There is a nonspecific bowel gas pattern without evidence of distension of small bowel or colon. There is no free air seen. There is stable left retrocardiac density and patchy density right lung base. IMPRESSION Nasogastric tube tip is directed inferiorly in the mid body of the stomach. There is a nonspecific bowel gas pattern without significant distension of stomach, small bowel or colon. No bowel wall thickening or suspicious calcification. No free air. Dictated by... Adrienne Grubbs M.D. THIS IS AN ELECTRONICALLY VERIFIED REPORT Adrienne Grubbs M.D. at 01/19/2017 2:28 PM CARINE/eliceo TD: 01/19/2017 11:00 JOB #: [id number] [facility] A Service [facility] RADIOLOGY TEXT RESULTS PATIENT: LEONEL MCKEON LOCATION: [address] 33 UNIT #: [id number] AGE: [address]: Marline Daley MD SEX: M ORDER DR: MEDICAL IMAGING REPORT Page 1 of 1 COPY
--- NOTE | ~2017-01-13 | EKG ---
PATIENT: LEONEL MCKEON UNIT #: [id number] Ventricular Rate: 98 BPM Atrial Rate: 98 BPM P-R Interval: 190 ms QRS Duration: 82 ms Q-T Interval: 338 ms QTC Calculation(Bezet): 431 ms P [place]: 86 degrees Calculated R [place]: 29 degrees Calculated T [place]: 43 degrees Diagnosis Line: Normal sinus rhythm Diagnosis Line: Low voltage QRS Diagnosis Line: Borderline ECG Diagnosis Line: No previous ECGs available Diagnosis Line: Confirmed by LOVELY ALEX MD ([id number]) on 01/14/2017 Diagnosis Line: 10:45:48 PM INTERPRETING MD: ISAI STONE
--- NOTE | ~2017-01-13 | US77 ---
[facility] A Service of [facility] & [facility] RADIOLOGY TEXT RESULTS PATIENT: LEONEL MCKEON LOCATION: [address] : 33 UNIT #: [id number] AGE: [address]: Marline Daley MD SEX: M ORDER DR: [id number] [facility] [address] [facility]. [place], [place] [address] [id number] I MR#: [id number] Acc #: [id number] NAME: LEONEL MCKEON : 1935 SEX: M STUDY DATE/TIME: 01/14/2017 22:40 UNIT: [facility] ROOM: [facility] STUDY DESCRIPTION: US Kidney Bilateral Complete Attending Physician: Marline Daley M.D. Ordering Physician: Aaliyah Champion M.D. MEDICAL IMAGING REPORT This report is preliminary unless electronic signature is present EXAM Bilateral renal ultrasound INDICATIONS Elevated BUN and creatinine, acute renal failure, BUN 44, creatinine 2.2 FINDINGS The study is limited by patient size. The right kidney is 10.9 cm in length. There is an echogenic focus in the upper pole measuring 12 mm in diameter suggesting a stone. It has some shadowing. There is no hydronephrosis. The left kidney is 10.6 cm in length and appears normal. The bladder is collapsed. IMPRESSION 1. There is no hydronephrosis and both kidneys are normal in size. There appears to be a 12-mm stone in the upper pole of the right kidney. Dictated by... Jai Fox M.D. THIS IS AN ELECTRONICALLY VERIFIED REPORT Jai Fox M.D. at 01/15/2017 1:59 AM FEL/psc TD: 01/15/2017 00:14 JOB #: [id number] MEDICAL IMAGING REPORT Page 1 of 1 COPY
[2017-01-13 20:33] LABS: ARTERIAL BLD GAS O2 SATURATION 96.4 % (90.0-100.0); ARTERIAL BLOOD GAS CARBOXY HB 0.8 %sat (0.0-9.0); ARTERIAL BLOOD GAS HCO3 22.9 mmol/L; ARTERIAL BLOOD GAS MET HB 0.9 %sat (0.0-2.0); ARTERIAL BLOOD GAS PCO2 62.5 mmHg (35.0-45.0); ARTERIAL BLOOD GAS pH 7.173 (7.350-7.450)
[2017-01-13 20:34] LABS: ARTERIAL BLOOD GAS ART SITE LEFT BRACHIAL; ARTERIAL BLOOD GAS DELIVERY VENT; ARTERIAL BLOOD GAS VENT MODE AC; ARTERIAL DRAW? YES
[2017-01-13 22:21] LABS: ARTERIAL BLD GAS O2 SATURATION 97.6 % (90.0-100.0); ARTERIAL BLOOD GAS CARBOXY HB 0.2 %sat (0.0-9.0); ARTERIAL BLOOD GAS HCO3 21.2 mmol/L; ARTERIAL BLOOD GAS MET HB 0.7 %sat (0.0-2.0); ARTERIAL BLOOD GAS pH 7.201 (7.350-7.450)
[2017-01-13 22:22] LABS: ARTERIAL BLOOD GAS ART SITE LEFT BRACHIAL; ARTERIAL BLOOD GAS DELIVERY VENT; ARTERIAL BLOOD GAS PCO2 54.1 mmHg (35.0-45.0); ARTERIAL BLOOD GAS VENT MODE AC; ARTERIAL DRAW? YES
[2017-01-13 22:36] LABS: BASOPHIL% 0.1 % (0-2.5); HEMATOCRIT 39.8 % (38.0-50.0); HEMOGLOBIN 12.2 gm/dL (13.0-16.0); LYMPHOCYTE# 0.7 X10e3 (1.0-3.5); MEAN CELL VOLUME 84.6 FL (83-96); MEAN CORPUSCULAR HEMOGLOBIN 25.9 PG (28-34); MEAN CORPUSCULAR HGB CONC 30.6 g/dL (30-36); MEAN PLATELET VOLUME 8.4 FL (6.5-11.5); MONOCYTE# 0.2 X10e3 (0-1.0); MONOCYTE% 2.3 % (3.0-12.0); NEUTROPHIL% 91.6 % (40-75); PLATELET COUNT 207 X10e3 (140-420); RED BLOOD COUNT 4.71 X10e (3.90-5.60); RED CELL DISTRIBUTION WIDTH 18.2 % (11.0-15.5); WHITE BLOOD COUNT 10.9 X10e3 (4.0-10.5)
[2017-01-13 22:37] LABS: DIFF IND NO
[2017-01-13 22:59] LABS: BILIRUBIN,TOTAL 0.4 mg/dL (0.2-2.0); CALCIUM SERUM 6.5 mg/dL (8.4-10.2); CREATININE SERUM 1.9 mg/dL (0.6-1.4); GLOM FILT RATE Estimated 31.9 mL/min (>60); POTASSIUM 4.2 mmol/L (3.5-5.1); PROTEIN TOTAL SERUM 4.9 g/dL (6.0-8.3)
[2017-01-13 23:18] LABS: %MB 4.7 % (0.0-4.0); MB 137.5 ng/ml
[2017-01-14 01:15] LABS: INR 1.3; PARTIAL THROMBOPLASTIN TIME 34.2 SECONDS (23.5-31.3); PROTHROMBIN TIME (PATIENT) 13.5 SECONDS (9.6-11.5)
[2017-01-14 01:30] LABS: BUN/CREATININE RATIO 20.47; CREATININE SERUM 2.1 mg/dL (0.6-1.4); GLOM FILT RATE Estimated 28.3 mL/min (>60); POTASSIUM 4.5 mmol/L (3.5-5.1)
[2017-01-14 04:37] LABS: ARTERIAL BLD GAS O2 SATURATION 98.3 % (90.0-100.0); ARTERIAL BLOOD GAS CARBOXY HB 0.1 %sat (0.0-9.0); ARTERIAL BLOOD GAS HCO3 18.6 mmol/L; ARTERIAL BLOOD GAS MET HB 0.9 %sat (0.0-2.0); ARTERIAL BLOOD GAS PCO2 45.6 mmHg (35.0-45.0); ARTERIAL BLOOD GAS pH 7.219 (7.350-7.450)
[2017-01-14 04:42] LABS: ARTERIAL BLOOD GAS ART SITE RIGHT BRACHIAL; ARTERIAL BLOOD GAS DELIVERY VENT; ARTERIAL BLOOD GAS VENT MODE AC; ARTERIAL DRAW? YES
[2017-01-14 04:44] LABS: BASOPHIL% 0.1 % (0-2.5); EOSINOPHIL% 0.1 % (0.0-7.0); HEMATOCRIT 35.8 % (38.0-50.0); LYMPHOCYTE# 0.3 X10e3 (1.0-3.5); LYMPHOCYTE% 2.3 % (17.0-45.0); MEAN CELL VOLUME 83.8 FL (83-96); MEAN CORPUSCULAR HEMOGLOBIN 25.8 PG (28-34); MEAN CORPUSCULAR HGB CONC 30.8 g/dL (30-36); MEAN PLATELET VOLUME 8.6 FL (6.5-11.5); MONOCYTE# 0.2 X10e3 (0-1.0); MONOCYTE% 1.6 % (3.0-12.0); NEUTROPHIL# 13.1 X10e3 (1.5-7.1); NEUTROPHIL% 95.9 % (40-75); PLATELET COUNT 210 X10e3 (140-420); RED BLOOD COUNT 4.27 X10e (3.90-5.60); WHITE BLOOD COUNT 13.7 X10e3 (4.0-10.5)
[2017-01-14 04:46] LABS: DIFF IND YES
[2017-01-14 04:56] LABS: ANISOCYTOSIS MOD; PLATELET ESTIMATE NORMAL (NORMAL); POIKILOCYTOSIS SL; VACUOLIZATION P
[2017-01-14 05:26] LABS: CALCIUM SERUM 6.9 mg/dL (8.4-10.2); CREATININE SERUM 2.2 mg/dL (0.6-1.4); GLOM FILT RATE Estimated 26.7 mL/min (>60); POTASSIUM 4.7 mmol/L (3.5-5.1)
[2017-01-14 05:52] LABS: MB 125.9 ng/ml
[2017-01-14 06:23] LABS: URINE SOURCE CATH
[2017-01-14 06:26] LABS: URINE APPEARANCE CLOUDY; URINE BILIRUBIN NEG (NEG); URINE BLOOD 3+ (NEG); URINE COLOR YELLOW; URINE GLUCOSE 250 MG/DL (NEG); URINE KETONE NEG (NEG); URINE LEUKOCYTE ESTERASE TRACE (NEG); URINE NITRATE NEG (NEG); URINE PROTEIN 2+ (NEG); URINE SPECIFIC GRAVITY 1.013 (1.003-1.035); URINE UROBILINOGEN 0.2 MG/DL (NEG)
[2017-01-14 06:28] LABS: URBCS1 AUWI 50-100 /[HPF] (0-2); URINE BACTERIA AUWI NEG (NEGATIVE); URINE SQUAMOUS EPITHELIAL CELL OCC /[HPF]
[2017-01-14 06:43] LABS: U HYALINE CASTS AUWI 0-2 /[LPF]; URINE MUCUS PRESENT
[2017-01-14 12:45] LABS: CHOLESTEROL 68 mg/dL (0-200); HDL CHOLESTEROL 36 mg/dL (29-75); LDL CHOLESTEROL 25 mg/dL ([, -130]); LDL/HDL RATIO 1 RATIO (0-4); TRIGLYCERIDES 34 mg/dL (10-160)
[2017-01-14 14:58] LABS: ARTERIAL BLD GAS O2 SATURATION 98.9 % (90.0-100.0); ARTERIAL BLOOD GAS CARBOXY HB 0.3 %sat (0.0-9.0); ARTERIAL BLOOD GAS HCO3 18.4 mmol/L; ARTERIAL BLOOD GAS MET HB 0.6 %sat (0.0-2.0); ARTERIAL BLOOD GAS PCO2 38.6 mmHg (35.0-45.0); ARTERIAL BLOOD GAS pH 7.286 (7.350-7.450)
[2017-01-14 14:59] LABS: ARTERIAL BLOOD GAS ART SITE RIGHT BRACHIAL; ARTERIAL BLOOD GAS VENT MODE AC; ARTERIAL DRAW? YES
[2017-01-14 18:33] LABS: URINE APPEARANCE CLOUDY; URINE BILIRUBIN NEG (NEG); URINE BLOOD 3+ (NEG); URINE COLOR YELLOW; URINE GLUCOSE 500 MG/DL (NEG); URINE KETONE NEG (NEG); URINE LEUKOCYTE ESTERASE NEG (NEG); URINE NITRATE NEG (NEG); URINE PROTEIN 1+ (NEG); URINE SPECIFIC GRAVITY 1.011 (1.003-1.035); URINE UROBILINOGEN 0.2 MG/DL (NEG)
[2017-01-14 18:35] LABS: URINE SQUAMOUS EPITHELIAL CELL NONE SEEN /[HPF]
[2017-01-14 18:46] LABS: URINE BACTERIA AUWI 1+ (NEGATIVE)
[2017-01-15 04:40] LABS: ARTERIAL BLOOD GAS ALLEN TEST NORMAL; ARTERIAL BLOOD GAS ART SITE RIGHT RADIAL; ARTERIAL BLOOD GAS CARBOXY HB 0.5 %sat (0.0-9.0); ARTERIAL BLOOD GAS DELIVERY VENT; ARTERIAL BLOOD GAS HCO3 22.6 mmol/L; ARTERIAL BLOOD GAS MET HB 0.3 %sat (0.0-2.0); ARTERIAL BLOOD GAS PCO2 39.1 mmHg (35.0-45.0); ARTERIAL BLOOD GAS PO2 86.3 mmHg (80.0-100); ARTERIAL BLOOD GAS VENT MODE AC; ARTERIAL DRAW? YES
[2017-01-15 06:11] LABS: BASOPHIL# 0.1 X10e3 (0-0.3); BASOPHIL% 0.3 % (0-2.5); HEMATOCRIT 31.4 % (38.0-50.0); HEMOGLOBIN 9.9 gm/dL (13.0-16.0); LYMPHOCYTE# 0.2 X10e3 (1.0-3.5); LYMPHOCYTE% 0.8 % (17.0-45.0); MEAN CORPUSCULAR HEMOGLOBIN 25.5 PG (28-34); MEAN CORPUSCULAR HGB CONC 31.6 g/dL (30-36); MEAN PLATELET VOLUME 8.6 FL (6.5-11.5); MONOCYTE# 0.4 X10e3 (0-1.0); MONOCYTE% 1.6 % (3.0-12.0); NEUTROPHIL# 26.4 X10e3 (1.5-7.1); NEUTROPHIL% 97.3 % (40-75); PLATELET COUNT 154 X10e3 (140-420); RED BLOOD COUNT 3.89 X10e (3.90-5.60); RED CELL DISTRIBUTION WIDTH 18.4 % (11.0-15.5)
[2017-01-15 06:15] LABS: MEAN CELL VOLUME 80.7 FL (83-96); WHITE BLOOD COUNT 27.2 X10e3 (4.0-10.5)
[2017-01-15 06:19] LABS: DIFF IND YES
[2017-01-15 06:37] LABS: PLATELET ESTIMATE NORMAL (NORMAL)
[2017-01-15 06:38] LABS: ANISOCYTOSIS SL; HYPOCHROMIA SL; OVALOCYTES PRESENT; POIKILOCYTOSIS SL
[2017-01-15 07:31] LABS: ALBUMIN SERUM 2.1 g/dL (3.5-5.0); BUN/CREATININE RATIO 22.91; CALCIUM SERUM 7.6 mg/dL (8.4-10.2); CREATININE SERUM 2.4 mg/dL (0.6-1.4); GLOM FILT RATE Estimated 24.1 mL/min (>60); MAGNESIUM 1.4 mg/dL (1.6-3.0); PHOSPHOROUS 2.8 mg/dL (2.5-4.6); POTASSIUM 4.8 mmol/L (3.5-5.1); PROTEIN TOTAL SERUM 5.5 g/dL (6.0-8.3)
[2017-01-16 04:01] LABS: BASOPHIL# 0.1 X10e3 (0-0.3); BASOPHIL% 0.3 % (0-2.5); HEMATOCRIT 26.1 % (38.0-50.0); HEMOGLOBIN 8.6 gm/dL (13.0-16.0); LYMPHOCYTE# 0.2 X10e3 (1.0-3.5); MEAN CELL VOLUME 78.3 FL (83-96); MEAN CORPUSCULAR HGB CONC 33.2 g/dL (30-36); MEAN PLATELET VOLUME 8.3 FL (6.5-11.5); MONOCYTE# 0.6 X10e3 (0-1.0); MONOCYTE% 3.2 % (3.0-12.0); NEUTROPHIL# 19.5 X10e3 (1.5-7.1); NEUTROPHIL% 95.5 % (40-75); PLATELET COUNT 106 X10e3 (140-420); RED BLOOD COUNT 3.33 X10e (3.90-5.60); RED CELL DISTRIBUTION WIDTH 18.1 % (11.0-15.5); WHITE BLOOD COUNT 20.5 X10e3 (4.0-10.5)
[2017-01-16 04:02] LABS: DIFF IND NO
[2017-01-16 04:26] LABS: ALKALINE PHOSPHATASE 72 U/L (32-92); ALT (SGPT) 28 U/L (10-40); AMYLASE 7 U/L (0-46); AST (SGOT) 42 U/L (10-42); BLOOD UREA NITROGEN 66 mg/dL (9-23); BUN/CREATININE RATIO 28.69; CALCIUM SERUM 7.7 mg/dL (8.4-10.2); CARBON DIOXIDE 23 mmol/L (22-31); CHLORIDE 104 mmol/L (100-111); CPK (CREATINE PHOSPHOKINASE) 628 IU/L (36-174); CREATININE SERUM 2.3 mg/dL (0.6-1.4); GLOM FILT RATE Estimated 25.3 mL/min (>60); GLUCOSE FASTING 183 mg/dL (70-110); MAGNESIUM 1.8 mg/dL (1.6-3.0); PHOSPHOROUS 2.5 mg/dL (2.5-4.6); POTASSIUM 3.4 mmol/L (3.5-5.1); PROTEIN TOTAL SERUM 5.6 g/dL (6.0-8.3); SODIUM 138 mmol/L (135-145)
[2017-01-16 04:27] LABS: LIPASE <10 U/L (22-51)
[2017-01-16 05:28] LABS: ARTERIAL BLOOD GAS CARBOXY HB 0.6 %sat (0.0-9.0); ARTERIAL BLOOD GAS HCO3 24.6 mmol/L; ARTERIAL BLOOD GAS MET HB 0.6 %sat (0.0-2.0); ARTERIAL BLOOD GAS PCO2 32.1 mmHg (35.0-45.0); ARTERIAL BLOOD GAS PO2 81.4 mmHg (80.0-100); ARTERIAL BLOOD GAS pH 7.493 (7.350-7.450)
[2017-01-16 05:37] LABS: ARTERIAL BLOOD GAS ALLEN TEST NORMAL; ARTERIAL BLOOD GAS ART SITE RIGHT BRACHIAL; ARTERIAL BLOOD GAS VENT MODE AC; ARTERIAL DRAW? YES
[2017-01-17 03:55] LABS: BASOPHIL% 0.1 % (0-2.5); HEMATOCRIT 28.8 % (38.0-50.0); HEMOGLOBIN 9.2 gm/dL (13.0-16.0); LYMPHOCYTE# 0.2 X10e3 (1.0-3.5); LYMPHOCYTE% 1.3 % (17.0-45.0); MEAN CELL VOLUME 79.3 FL (83-96); MEAN CORPUSCULAR HEMOGLOBIN 25.3 PG (28-34); MEAN PLATELET VOLUME 8.7 FL (6.5-11.5); MONOCYTE# 0.7 X10e3 (0-1.0); MONOCYTE% 4.9 % (3.0-12.0); NEUTROPHIL# 13.5 X10e3 (1.5-7.1); NEUTROPHIL% 93.7 % (40-75); PLATELET COUNT 100 X10e3 (140-420); RED BLOOD COUNT 3.64 X10e (3.90-5.60); RED CELL DISTRIBUTION WIDTH 17.8 % (11.0-15.5); WHITE BLOOD COUNT 14.4 X10e3 (4.0-10.5)
[2017-01-17 03:56] LABS: DIFF IND NO
[2017-01-17 04:11] LABS: ALBUMIN SERUM 2.1 g/dL (3.5-5.0); BILIRUBIN,TOTAL 0.9 mg/dL (0.2-2.0); CREATININE SERUM 2.4 mg/dL (0.6-1.4); GLOM FILT RATE Estimated 24.1 mL/min (>60); MAGNESIUM 2.2 mg/dL (1.6-3.0); PHOSPHOROUS 1.5 mg/dL (2.5-4.6); POTASSIUM 3.6 mmol/L (3.5-5.1); PROTEIN TOTAL SERUM 5.3 g/dL (6.0-8.3)
[2017-01-17 04:20] LABS: ARTERIAL BLD GAS O2 SATURATION 98.2 % (90.0-100.0); ARTERIAL BLOOD GAS CARBOXY HB 0.7 %sat (0.0-9.0); ARTERIAL BLOOD GAS HCO3 31.5 mmol/L; ARTERIAL BLOOD GAS MET HB 0.9 %sat (0.0-2.0); ARTERIAL BLOOD GAS PCO2 34.6 mmHg (35.0-45.0); ARTERIAL BLOOD GAS pH 7.567 (7.350-7.450)
[2017-01-17 04:28] LABS: ARTERIAL BLOOD GAS ALLEN TEST NORMAL; ARTERIAL BLOOD GAS ART SITE LEFT RADIAL; ARTERIAL BLOOD GAS DELIVERY VENT; ARTERIAL BLOOD GAS VENT MODE A/C; ARTERIAL DRAW? YES
[2017-01-18 06:09] LABS: BASOPHIL% 0.1 % (0-2.5); DIFF IND NO; EOSINOPHIL# 0.1 X10e3 (0-0.7); EOSINOPHIL% 0.5 % (0.0-7.0); HEMOGLOBIN 8.7 gm/dL (13.0-16.0); LYMPHOCYTE# 0.2 X10e3 (1.0-3.5); MEAN CELL VOLUME 79.5 FL (83-96); MEAN CORPUSCULAR HEMOGLOBIN 25.7 PG (28-34); MEAN CORPUSCULAR HGB CONC 32.3 g/dL (30-36); MEAN PLATELET VOLUME 8.9 FL (6.5-11.5); MONOCYTE# 0.8 X10e3 (0-1.0); MONOCYTE% 7.9 % (3.0-12.0); NEUTROPHIL# 8.7 X10e3 (1.5-7.1); NEUTROPHIL% 89.5 % (40-75); PLATELET COUNT 82 X10e3 (140-420); RED CELL DISTRIBUTION WIDTH 17.9 % (11.0-15.5); WHITE BLOOD COUNT 9.7 X10e3 (4.0-10.5)
[2017-01-18 06:56] LABS: BUN/CREATININE RATIO 38.18; CALCIUM SERUM 7.9 mg/dL (8.4-10.2); CREATININE SERUM 2.2 mg/dL (0.6-1.4); GLOM FILT RATE Estimated 26.7 mL/min (>60); PHOSPHOROUS 2.5 mg/dL (2.5-4.6)
[2017-01-18 07:26] LABS: ARTERIAL BLD GAS O2 SATURATION 96.2 % (90.0-100.0); ARTERIAL BLOOD GAS CARBOXY HB 0.4 %sat (0.0-9.0); ARTERIAL BLOOD GAS HCO3 37.3 mmol/L; ARTERIAL BLOOD GAS MET HB 0.6 %sat (0.0-2.0); ARTERIAL BLOOD GAS PCO2 41.5 mmHg (35.0-45.0); ARTERIAL BLOOD GAS pH 7.562 (7.350-7.450)
[2017-01-18 07:27] LABS: ARTERIAL BLOOD GAS ALLEN TEST NORMAL; ARTERIAL BLOOD GAS ART SITE RIGHT RADIAL; ARTERIAL BLOOD GAS DELIVERY VENT; ARTERIAL BLOOD GAS PO2 76.7 mmHg (80.0-100); ARTERIAL BLOOD GAS VENT MODE AC; ARTERIAL DRAW? YES
[2017-01-19 04:02] LABS: ARTERIAL BLD GAS O2 SATURATION 99.7 % (90.0-100.0); ARTERIAL BLOOD GAS CARBOXY HB 0.2 %sat (0.0-9.0); ARTERIAL BLOOD GAS HCO3 35.9 mmol/L; ARTERIAL BLOOD GAS pH 7.458 (7.350-7.450)
[2017-01-19 04:07] LABS: ARTERIAL BLOOD GAS ART SITE LEFT BRACHIAL; ARTERIAL BLOOD GAS DELIVERY VENT; ARTERIAL BLOOD GAS PCO2 50.8 mmHg (35.0-45.0); ARTERIAL BLOOD GAS VENT MODE AC; ARTERIAL DRAW? YES
[2017-01-19 05:48] LABS: DIFF IND YES; HEMATOCRIT 23.9 % (38.0-50.0); HEMOGLOBIN 7.6 gm/dL (13.0-16.0); LYMPHOCYTE# 0.5 X10e3 (1.0-3.5); LYMPHOCYTE% 3.9 % (17.0-45.0); MEAN CELL VOLUME 80.3 FL (83-96); MEAN CORPUSCULAR HEMOGLOBIN 25.4 PG (28-34); MEAN CORPUSCULAR HGB CONC 31.6 g/dL (30-36); MEAN PLATELET VOLUME 9.1 FL (6.5-11.5); MONOCYTE# 0.8 X10e3 (0-1.0); MONOCYTE% 6.2 % (3.0-12.0); NEUTROPHIL# 11.7 X10e3 (1.5-7.1); NEUTROPHIL% 89.9 % (40-75); PLATELET COUNT 90 X10e3 (140-420); RED BLOOD COUNT 2.97 X10e (3.90-5.60); RED CELL DISTRIBUTION WIDTH 18.3 % (11.0-15.5)
[2017-01-19 06:39] LABS: ANISOCYTOSIS MOD; OVALOCYTES PRESENT; PLATELET ESTIMATE DECREASED (NORMAL); SCHISTOCYTES PRESENT
[2017-01-19 06:40] LABS: BUN/CREATININE RATIO 45.23; CALCIUM SERUM 8.2 mg/dL (8.4-10.2); CREATININE SERUM 2.1 mg/dL (0.6-1.4); GLOM FILT RATE Estimated 28.3 mL/min (>60); POTASSIUM 3.9 mmol/L (3.5-5.1)
[2017-01-20 06:45] LABS: CALCIUM SERUM 7.8 mg/dL (8.4-10.2); CREATININE SERUM 2.1 mg/dL (0.6-1.4); GLOM FILT RATE Estimated 28.3 mL/min (>60); PHOSPHOROUS 4.1 mg/dL (2.5-4.6); POTASSIUM 4.6 mmol/L (3.5-5.1)
[2017-01-20 06:46] LABS: BUN/CREATININE RATIO 53.8
== END 2017-01-20 11:52 | disposition expired | DRG 870 ==
LOC: CICCU3 20:50
PROVIDERS: Family Medicine; Internal Medicine; Internal Medicine Cardiovascular Disease; Internal Medicine Nephrology; Internal Medicine Pulmonary Disease
PROC: 5A1955Z Respiratory Ventilation, Greater than 96 Consecutive Hours (ICD-10-PCS; principal; 2017-01-13)
PROC: 02HV33Z Insertion of Infusion Device into Superior Vena Cava, Percutaneous Approach (ICD-10-PCS; 2017-01-13)
PROC: 0HB4XZX Excision of Neck Skin, External Approach, Diagnostic (ICD-10-PCS; 2017-01-16)
PROC: 5A12012 Performance of Cardiac Output, Single, Manual (ICD-10-PCS; 2017-01-19)
DX: A41.9 Sepsis, unspecified organism (principal); I21.4 Non-ST elevation (NSTEMI) myocardial infarction; J96.01 Acute respiratory failure with hypoxia; J96.02 Acute respiratory failure with hypercapnia; R65.21 Severe sepsis with septic shock; J18.9 Pneumonia, unspecified organism; N17.9 Acute kidney failure, unspecified; E87.2 Acidosis; J44.0 Chronic obstructive pulmonary disease with (acute) lower respiratory infection; E87.0 Hyperosmolality and hypernatremia; Z66 Do not resuscitate; F03.90 Unspecified dementia, unspecified severity, without behavioral disturbance, psychotic disturbance, mood disturbance, and anxiety; E16.2 Hypoglycemia, unspecified; E83.51 Hypocalcemia; N18.9 Chronic kidney disease, unspecified; R62.7 Adult failure to thrive; E83.42 Hypomagnesemia; I34.0 Nonrheumatic mitral (valve) insufficiency; I46.9 Cardiac arrest, cause unspecified
CPT/HCPCS: 36600; 71010; 71250; 74000; 76770; 80048; 80053; 80061; 80202; 81003; 82150; 82550; 82553; 82803; 82947; 83605; 83615; 83690; 83735; 83880; 84100; 84132; 84300; 84443; 84484; 85025; 85610; 85730; 86022; 87040; 87070; 87077; 87086; 87186; 87205; 87449; 88305; 89190; 92950; 93005; 93306; 94002; 94003; 94640; 94760; J0171; J0610; J0696; J1265; J1644; J1720; J1815; J2185; J2250; J2310; J2920; J3010; J3370; J3475; J7060